=== PATIENT | female | born 1995 | race Caucasian/White ===

== ENCOUNTER 2019-03-08 03:56 | Inpatient (IN) ==
--- OUTSIDE RECORDS SUMMARY | 2019-03-08 04:03 | External Medical Summary | Continuity of Care Document ---
:1995 Author Name Farnaz Cat, Provider Address Unavailable Unavailable , Care Team Providers Name Role Phone Alen Cat, Harjeet Anna Unavailable [email or web address] Unavailable Unavailable Unavailable Unavailable Problems Female pelvic pain (625.9) (R10.2) Dysfunctional uterine bleeding (626.8) (N93.8) Dyspareunia, female (625.0) (N94.10) Oral contraceptive prescribed (V25.01) (Z30.011) Allergies and Adverse Reactions No Known Drug Allergies (Allergy) Medications 1.5-30 MG-MCG Oral Tablet; TAKE ONE TA BLET BY MOUTH EVERY DAY Stephania Lowry Start: 05-Dec-2015 Quantity: 28 Refills: 3 Microgestin FE 1.5-30 MG-MCG Oral Tablet; TAKE ONE TABLET BY MOUTH ONCE DAILY Stephania Lowry Start: 14-Apr-2016 Quantity: 28 Refills: 3 Procedures Procedures not documented Immunizations Immunizations not documented Social History - Smoking Status Never smoker Plan of Treatment Planned Observations Planned Goals not documented Results No Known Results Results not documented
[2019-03-08] MEDS ORDERED: OXYTOCIN 30 UNITS/500 ML BAG IV PRN ×3 (04:39→20:22)
[2019-03-08 05:07] LABS: Hematocrit (blood only) 32.4 % (37-47); Hemoglobin 10.9 g/dL (12.0-16.0); Mean Corpuscular Volume 78.3 fL (80-100); Mean Platelet Volume 9.6 fL (7.4-10.4); Platelet Count 210 K/uL (130-400); RDW Coefficient of Variation 14.9 % (11.5-14.5); RDW Standard Deviation 41.9 fL (36.4-46.3); Red Blood Count 4.14 M/uL (4.2-5.4); White Blood Count 9.14 K/uL (4.8-10.8)
[2019-03-08 05:16] LABS: Mean Corpuscular Hgb Conc 33.6 g/dL (32-36)
[2019-03-08] MEDS ORDERED: BUTORPHANOL TARTRATE 2 MG/ML VIAL IV PRN (07:47)
--- NOTE | 2019-03-08 07:54 | History & Physical Report ---
Date of Service March 08, 2019 Assessment & Plan (1) Spontaneous rupture of amniotic membranes: 23 yo at 39 wks, SROM, in early labor VSS Afebrile, slighly elevated BP mild CHEUNG GBS Negative FHR reassuring Plan admit, monitor, IVF, Labs, expectant management Discussed pain management, plans to have epidural All questions were answered History of Present Illness Chief Complaint: Leaking fluids Primary Care Provider: Lisha Hussein DO Patient is a 23 yo at 39 wks, has been leaking clear fluids since 230 am Contractions stared 1 hours after, getting closer and more painful No VB/ Fever/ chills/ Abd pain/ N&V/ epig or RUQ pain Mild CHEUNG since he came No change in vision Her has been uncomplicated GBS negative Allergies Allergy/AdvReac Type Severity Reaction Status Date / Time No Known Allergies Allergy Verified 03/08/19 04:17 Home Medications Home Medications Medication Instructions Recorded Confirmed Type vit-iron fum-folic ac 1 tab PO DAILY 01/20/19 03/08/19 History [ Vitamin] Patient History Medical History Ankle sprain (Acute) Cellulitis of right leg (Acute) Dizziness (Acute) Dizziness (Acute) Dizziness (Acute) Dizziness (Acute) CHEUNG (headache) (Acute) CHEUNG (headache) (Acute) Headache (Acute) Hemorrhagic ovarian cyst (Acute) Migraine (Acute) Pustule (Acute) Wrist pain, left (Acute) Broken hip 2013 Pineal gland cyst Surgical History History of root canal procedure 2017 Family History Other No significant family history Social History Preferred Language: Dutch Communication Ability: Effective Reliner Required: No Beliefs That Will Affect Care: None marital status: Current Living Situation: Spouse Other Information That Helps Us Care for You: No Feels Safe at Home: Yes Safety Concerns: Feels Safe At This Time Smoking Status: Never smoker Hx Alcohol Use: No Hx Substance Use: No [employer] History No h/o STD's, no h/o HSV/ Chlamydia/ Gonorrhea Review of Systems All systems reviewed & are unremarkable except as noted in HPI & below Physical Exam Constitutional: WD/WN, vitals as above + in distress (mild with ctxs) Gastrointestinal (Abdomen): Soft, NT, gravid, Yves 7-8 lb Musculoskeletal: Ext; NT, 2+/2+ edema, DTR 1+/1+, no clonus Genitourinary: Grossly lekaing clear fluids Cervix: 2/ 70%/ -2, engaged Results & Data Vital Signs (Past 12 Hours) Vital Signs Temp Pulse Resp BP 03/08/19 07:04 36.6 C 16 03/08/19 07:03 96 H 148/88 H 03/08/19 06:27 36.6 C 82 18 134/81 03/08/19 04:18 36.6 C 88 18 137/83 03/08/19 04:12 36.5 C 88 18 137/83 Monitoring External Monitor Categ I Tocodynamometer Ctxs q 3-4 min
[2019-03-08 08:31] LABS: Albumin Level 2.4 gm/dl (3.4-5.0); BUN Creatinine Ratio 10.7 (10-20); Creatinine Clr Calc Pharmacy 171.2 ml/min; Est GFR (African American) 149.1; Est GFR (Non-African American) 128.7; Potassium 3.8 mmol/L (3.5-5.1)
[2019-03-08 08:33] LABS: Albumin Globulin Ratio 0.6 (0.9-2); Bilirubin,Total 0.3 mg/dl (0.2-1); Globulin 4.2 gm/dl (2.5-4.0); Total Protein 6.6 gm/dl (6.4-8.2)
[2019-03-08] MEDS: LACTATED RINGER'S 1,000 ML IV PRN ×5 (09:26→17:35)
[2019-03-08] MEDS ORDERED: BUPIVACAINE 0.25% 30 ML VIAL ONE ×2 (11:56→14:48)
[2019-03-08] MEDS ORDERED: ePHEDrine sulfate 50 MG/ML AMP ONE ×2 (11:57→14:48)
[2019-03-08] MEDS ORDERED: fentaNYL citrate 100 MCG/2 ML VIAL ONE ×2 (11:57→14:49)
[2019-03-08] MEDS ORDERED: fentaNYL 2MCG/ML ROPIV 1.25MG/ML 100 ML BAG EPI ONE ×2 (11:58→14:49)
[2019-03-08 12:10] LABS: Total Protein Urine Random 66.4 mg/dl (0-11.9)
--- NOTE | 2019-03-08 12:34 | Anesthesiology Consultation ---
Date of Service March 08, 2019 Assessment & Plan Chart Review Chart Review: Acceptable Risk for Labor Epidural Consults Requested none History Height/Weight Height: 5 ft 3.5 in Weight: 107.048 kg Allergies Allergy/AdvReac Type Severity Reaction Status Date / Time No Known Allergies Allergy Verified 03/08/19 04:17 Medications Home Medications Medication Instructions Recorded Confirmed Last Taken vit-iron fum-folic ac 1 tab PO DAILY 01/20/19 03/08/19 03/07/19 09:00 [ Vitamin] Active Medications Generic Name Dose Route Start Last Admin Trade Name Freq PRN Reason Stop Dose Admin Butorphanol Tartrate 1 mg 03/08/19 07:47 03/08/19 09:23 Stadol IV 04/07/19 07:46 1 mg Q3HWA PRN Administration Pain Lactated Ringer's 1,000 mls @ 125 mls/hr 03/08/19 04:39 03/08/19 12:12 Lr IV 03/10/19 04:38 125 mls/hr .Q8H PRN Infusion L&D Protocol Protocol Past Medical History Medical History Ankle sprain (Acute) Cellulitis of right leg (Acute) Dizziness (Acute) Dizziness (Acute) Dizziness (Acute) Dizziness (Acute) CHEUNG (headache) (Acute) CHEUNG (headache) (Acute) Headache (Acute) Hemorrhagic ovarian cyst (Acute) Migraine (Acute) Pustule (Acute) Wrist pain, left (Acute) Broken hip 2014 Pineal gland cyst Past Family History Family History Other No significant family history Past Surgical History Surgical History History of root canal procedure 2017 Social History Smoking Status: Never smoker Hx Alcohol Use: No Hx Substance Use: No substance use type: does not use Physical Exam Vital Signs Last Vital Signs Temp 36.5 C 03/08/19 10:55 Pulse 105 H 03/08/19 12:31 Resp 20 03/08/19 11:21 BP 148/85 H 03/08/19 12:23 Pulse Ox 99 03/08/19 12:31
[2019-03-08] MEDS ORDERED: NALOXONE HCL 1 MG in SODIUM CHLORIDE 0.9% 1000ML 1,000 ML IV PRN (12:35)
[2019-03-08] MEDS ORDERED: fentaNYL 2MCG/ML ROPIV 1.25MG/ML 100 ML BAG EPI PRN (12:35)
[2019-03-08] MEDS ORDERED: NALOXONE HCL 0.4 MG/1 ML VIAL/CARP IV PRN (12:35)
[2019-03-08] MEDS ORDERED: ePHEDrine sulfate 50 MG/ML AMP IV PRN (12:35)
[2019-03-08] MEDS ORDERED: NALBUPHINE HCL INJ 10 MG/ML AMP IV PRN (12:35)
[2019-03-08] MEDS ORDERED: DiphenhydrAMINE HCL 50 MG/ML VIAL IV PRN (12:35)
[2019-03-08] MEDS ORDERED: LIDOCAINE HCL 2% MPF (LOCAL) 5 ML VIAL INFIL ONE (14:33)
--- NOTE | 2019-03-08 15:21 | Obstetrical Progress Note ---
Date of Service March 08, 2019 Subjective Patient is reevaluated She received epidural but has pain on right side VSS Afebrile FHR categ I VE; 5/ 70%/ -2 Dr. Ahuja is here to bolus epidural Continue to monitor Start low dose Pitocin after pain relief Results & Data Vital Signs (Past 12 Hours) Vital Signs Temp Pulse Resp BP Pulse Ox Pulse Ox 03/08/19 15:16 111 H 112/56 L 93 03/08/19 15:13 109 H 92/54 L 03/08/19 15:11 132 H 111/53 L 95 03/08/19 15:07 115 H 126/65 03/08/19 15:06 113 H 97 03/08/19 15:04 125 H 131/65 03/08/19 15:01 116 H 128/64 96 03/08/19 14:56 124 H 99 03/08/19 14:51 113 H 141/94 H 98 03/08/19 14:46 110 H 99 03/08/19 14:42 113 H 150/78 H 03/08/19 14:41 108 H 98 03/08/19 14:36 109 H 99 03/08/19 14:31 119 H 146/74 H 96 03/08/19 14:26 109 H 98 03/08/19 14:23 112 H 148/99 H 03/08/19 14:21 113 H 100 03/08/19 14:16 113 H 96 03/08/19 14:12 109 H 142/85 H 03/08/19 14:11 113 H 97 03/08/19 14:06 115 H 100 03/08/19 14:01 114 H 137/80 97 03/08/19 13:56 102 H 100 03/08/19 13:51 104 H 131/73 98 03/08/19 13:46 110 H 98 03/08/19 13:41 105 H 136/74 97 03/08/19 13:36 98 H 97 03/08/19 13:32 101 H 148/74 H 03/08/19 13:31 102 H 99 03/08/19 13:26 104 H 96 03/08/19 13:25 110 H 88 L 03/08/19 13:23 36.8 C 18 03/08/19 13:21 100 H 95 03/08/19 13:20 107 H 135/83 88 L 03/08/19 13:17 117 H 132/78 03/08/19 13:16 104 H 98 03/08/19 13:15 102 H 135/99 03/08/19 13:11 119 H 135/77 96 03/08/19 13:09 112 H 92 03/08/19 13:08 100 H 129/71 03/08/19 13:06 117 H 96 03/08/19 13:05 115 H 130/71 03/08/19 13:02 111 H 133/73 03/08/19 13:01 106 H 99 03/08/19 12:59 102 H 137/72 03/08/19 12:56 101 H 97/50 L 93 03/08/19 12:53 106 H 104/51 L 03/08/19 12:51 112 H 96 03/08/19 12:50 113 H 116/54 L 03/08/19 12:47 106 H 122/61 03/08/19 12:46 109 H 97 03/08/19 12:45 98 03/08/19 12:44 109 H 135/73 03/08/19 12:41 97 H 99 03/08/19 12:38 101 H 133/73 93 03/08/19 12:36 107 H 100 03/08/19 12:31 105 H 99 03/08/19 12:29 101 H 92 03/08/19 12:26 103 H 99 03/08/19 12:23 110 H 148/85 H 03/08/19 12:22 105 H 93 03/08/19 12:21 94 H 98 03/08/19 11:21 104 H 20 134/76 03/08/19 10:55 36.5 C 18 03/08/19 09:00 36.4 C L 18 03/08/19 07:04 36.6 C 16 03/08/19 07:03 96 H 148/88 H 03/08/19 06:27 36.6 C 82 18 134/81 03/08/19 04:18 36.6 C 88 18 137/83 03/08/19 04:12 36.5 C 88 18 137/83
--- NOTE | 2019-03-08 17:51 | Obstetrical Progress Note ---
Date of Service March 08, 2019 Subjective Patient is reevaluated Comfortable now VE: 8/ 90%/0 FHR categ I [place]: ctxs q 2-4 min, pitocin was started at 2 miu/min Continue to monitor Anticipate Results & Data Vital Signs (Past 12 Hours) Vital Signs Temp Pulse Resp BP Pulse Ox Pulse Ox 03/08/19 17:46 111 H 96 03/08/19 17:41 112 H 99 03/08/19 17:40 112 H 137/75 03/08/19 17:36 115 H 99 03/08/19 17:31 113 H 97 03/08/19 17:29 114 H 132/71 03/08/19 17:26 119 H 96 03/08/19 17:21 116 H 96 03/08/19 17:19 114 H 124/68 03/08/19 17:16 112 H 95 03/08/19 17:11 109 H 97 03/08/19 17:09 106 H 126/74 03/08/19 17:06 114 H 97 03/08/19 17:01 110 H 98 03/08/19 17:00 111 H 129/69 03/08/19 16:56 105 H 98 03/08/19 16:51 111 H 95 03/08/19 16:49 116 H 133/69 03/08/19 16:46 105 H 95 03/08/19 16:41 114 H 96 03/08/19 16:39 113 H 121/60 03/08/19 16:36 104 H 97 03/08/19 16:35 120 H 88 L 03/08/19 16:31 106 H 95 03/08/19 16:30 109 H 124/58 L 03/08/19 16:26 107 H 95 03/08/19 16:21 107 H 94 03/08/19 16:19 104 H 104/59 L 03/08/19 16:16 101 H 97 03/08/19 16:11 101 H 95 03/08/19 16:09 105 H 100/57 L 03/08/19 16:06 99 H 94 03/08/19 16:01 105 H 97 03/08/19 16:00 99 H 99/53 L 03/08/19 15:56 106 H 95 03/08/19 15:51 100 H 94 03/08/19 15:49 101 H 103/56 L 03/08/19 15:46 99 H 95 03/08/19 15:41 103 H 95 03/08/19 15:39 96 H 113/55 L 03/08/19 15:36 103 H 94 03/08/19 15:34 101 H 90 03/08/19 15:31 99 H 94 03/08/19 15:28 96 H 110/61 03/08/19 15:26 92 H 95 03/08/19 15:25 104 H 108/60 91 03/08/19 15:22 102 H 108/62 03/08/19 15:21 123 H 94 03/08/19 15:20 104 H 91 03/08/19 15:19 117 H 87/50 L 03/08/19 15:16 111 H 112/56 L 93 03/08/19 15:13 109 H 92/54 L 03/08/19 15:11 132 H 111/53 L 95 03/08/19 15:07 115 H 126/65 03/08/19 15:06 113 H 97 03/08/19 15:04 125 H 131/65 03/08/19 15:01 116 H 128/64 96 03/08/19 15:00 36.5 C 18 03/08/19 14:56 124 H 99 03/08/19 14:51 113 H 141/94 H 98 03/08/19 14:46 110 H 99 03/08/19 14:42 113 H 150/78 H 03/08/19 14:41 108 H 98 03/08/19 14:36 109 H 99 03/08/19 14:31 119 H 146/74 H 96 03/08/19 14:26 109 H 98 03/08/19 14:23 112 H 148/99 H 03/08/19 14:21 113 H 100 03/08/19 14:16 113 H 96 03/08/19 14:12 109 H 142/85 H 03/08/19 14:11 113 H 97 03/08/19 14:06 115 H 100 03/08/19 14:01 114 H 137/80 97 03/08/19 13:56 102 H 100 03/08/19 13:51 104 H 131/73 98 03/08/19 13:46 110 H 98 03/08/19 13:41 105 H 136/74 97 03/08/19 13:36 98 H 97 03/08/19 13:32 101 H 148/74 H 03/08/19 13:31 102 H 99 03/08/19 13:26 104 H 96 03/08/19 13:25 110 H 88 L 03/08/19 13:23 36.8 C 18 03/08/19 13:21 100 H 95 03/08/19 13:20 107 H 135/83 88 L 03/08/19 13:17 117 H 132/78 03/08/19 13:16 104 H 98 03/08/19 13:15 102 H 135/99 03/08/19 13:11 119 H 135/77 96 03/08/19 13:09 112 H 92 03/08/19 13:08 100 H 129/71 03/08/19 13:06 117 H 96 03/08/19 13:05 115 H 130/71 03/08/19 13:02 111 H 133/73 03/08/19 13:01 106 H 99 03/08/19 12:59 102 H 137/72 03/08/19 12:56 101 H 97/50 L 93 03/08/19 12:53 106 H 104/51 L 03/08/19 12:51 112 H 96 03/08/19 12:50 113 H 116/54 L 03/08/19 12:47 106 H 122/61 03/08/19 12:46 109 H 97 03/08/19 12:45 98 03/08/19 12:44 109 H 135/73 03/08/19 12:41 97 H 99 03/08/19 12:38 101 H 133/73 93 03/08/19 12:36 107 H 100 03/08/19 12:31 105 H 99 03/08/19 12:29 101 H 92 03/08/19 12:26 103 H 99 03/08/19 12:23 110 H 148/85 H 03/08/19 12:22 105 H 93 03/08/19 12:21 94 H 98 03/08/19 11:21 104 H 20 134/76 03/08/19 10:55 36.5 C 18 03/08/19 09:00 36.4 C L 18 03/08/19 07:04 36.6 C 16 03/08/19 07:03 96 H 148/88 H 03/08/19 06:27 36.6 C 82 18 134/81
--- NOTE | 2019-03-08 18:53 | Obstetrical Progress Note ---
Date of Service March 08, 2019 Subjective Patient feels rectal pressure VE; 9 ( thin lip on right side) 100%+1 with ctx FHR categ I [place]: ctxs q 2-3 min Continue to monitor anticipate Results & Data Vital Signs (Past 12 Hours) Vital Signs Temp Pulse Resp BP Pulse Ox Pulse Ox 03/08/19 18:51 107 H 99 03/08/19 18:49 110 H 126/75 03/08/19 18:46 117 H 98 03/08/19 18:41 114 H 97 03/08/19 18:39 111 H 118/70 03/08/19 18:36 127 H 97 03/08/19 18:31 118 H 97 03/08/19 18:29 111 H 119/77 03/08/19 18:26 107 H 98 03/08/19 18:21 111 H 96 03/08/19 18:19 110 H 131/73 03/08/19 18:16 114 H 96 03/08/19 18:11 112 H 97 03/08/19 18:09 110 H 122/77 03/08/19 18:06 107 H 96 03/08/19 18:04 36.8 C 18 03/08/19 18:01 110 H 96 03/08/19 17:59 110 H 125/80 03/08/19 17:56 106 H 96 03/08/19 17:51 112 H 134/81 97 03/08/19 17:46 111 H 96 03/08/19 17:41 112 H 99 03/08/19 17:40 112 H 137/75 03/08/19 17:36 115 H 99 03/08/19 17:31 113 H 97 03/08/19 17:29 114 H 132/71 03/08/19 17:26 119 H 96 03/08/19 17:21 116 H 96 03/08/19 17:19 114 H 124/68 03/08/19 17:16 112 H 95 03/08/19 17:11 109 H 97 03/08/19 17:09 106 H 126/74 03/08/19 17:06 114 H 97 03/08/19 17:01 110 H 98 03/08/19 17:00 111 H 129/69 03/08/19 16:56 105 H 98 03/08/19 16:51 111 H 95 03/08/19 16:49 116 H 133/69 03/08/19 16:46 105 H 95 03/08/19 16:41 114 H 96 03/08/19 16:39 113 H 121/60 03/08/19 16:36 104 H 97 03/08/19 16:35 120 H 88 L 03/08/19 16:31 106 H 95 03/08/19 16:30 109 H 124/58 L 03/08/19 16:26 107 H 95 03/08/19 16:21 107 H 94 03/08/19 16:19 104 H 104/59 L 03/08/19 16:16 101 H 97 03/08/19 16:11 101 H 95 03/08/19 16:09 105 H 100/57 L 03/08/19 16:06 99 H 94 03/08/19 16:01 105 H 97 03/08/19 16:00 99 H 99/53 L 03/08/19 15:56 106 H 95 03/08/19 15:51 100 H 94 03/08/19 15:49 101 H 103/56 L 03/08/19 15:46 99 H 95 03/08/19 15:41 103 H 95 03/08/19 15:39 96 H 113/55 L 03/08/19 15:36 103 H 94 03/08/19 15:34 101 H 90 03/08/19 15:31 99 H 94 03/08/19 15:28 96 H 110/61 03/08/19 15:26 92 H 95 03/08/19 15:25 104 H 108/60 91 03/08/19 15:22 102 H 108/62 03/08/19 15:21 123 H 94 03/08/19 15:20 104 H 91 03/08/19 15:19 117 H 87/50 L 03/08/19 15:16 111 H 112/56 L 93 03/08/19 15:13 109 H 92/54 L 03/08/19 15:11 132 H 111/53 L 95 03/08/19 15:07 115 H 126/65 03/08/19 15:06 113 H 97 03/08/19 15:04 125 H 131/65 03/08/19 15:01 116 H 128/64 96 03/08/19 15:00 36.5 C 18 03/08/19 14:56 124 H 99 03/08/19 14:51 113 H 141/94 H 98 03/08/19 14:46 110 H 99 03/08/19 14:42 113 H 150/78 H 03/08/19 14:41 108 H 98 03/08/19 14:36 109 H 99 03/08/19 14:31 119 H 146/74 H 96 03/08/19 14:26 109 H 98 03/08/19 14:23 112 H 148/99 H 03/08/19 14:21 113 H 100 03/08/19 14:16 113 H 96 03/08/19 14:12 109 H 142/85 H 03/08/19 14:11 113 H 97 03/08/19 14:06 115 H 100 03/08/19 14:01 114 H 137/80 97 03/08/19 13:56 102 H 100 03/08/19 13:51 104 H 131/73 98 03/08/19 13:46 110 H 98 03/08/19 13:41 105 H 136/74 97 03/08/19 13:36 98 H 97 03/08/19 13:32 101 H 148/74 H 03/08/19 13:31 102 H 99 03/08/19 13:26 104 H 96 03/08/19 13:25 110 H 88 L 03/08/19 13:23 36.8 C 18 03/08/19 13:21 100 H 95 03/08/19 13:20 107 H 135/83 88 L 03/08/19 13:17 117 H 132/78 03/08/19 13:16 104 H 98 03/08/19 13:15 102 H 135/99 03/08/19 13:11 119 H 135/77 96 03/08/19 13:09 112 H 92 03/08/19 13:08 100 H 129/71 03/08/19 13:06 117 H 96 03/08/19 13:05 115 H 130/71 03/08/19 13:02 111 H 133/73 03/08/19 13:01 106 H 99 03/08/19 12:59 102 H 137/72 03/08/19 12:56 101 H 97/50 L 93 03/08/19 12:53 106 H 104/51 L 03/08/19 12:51 112 H 96 03/08/19 12:50 113 H 116/54 L 03/08/19 12:47 106 H 122/61 03/08/19 12:46 109 H 97 03/08/19 12:45 98 03/08/19 12:44 109 H 135/73 03/08/19 12:41 97 H 99 03/08/19 12:38 101 H 133/73 93 03/08/19 12:36 107 H 100 03/08/19 12:31 105 H 99 03/08/19 12:29 101 H 92 03/08/19 12:26 103 H 99 03/08/19 12:23 110 H 148/85 H 03/08/19 12:22 105 H 93 03/08/19 12:21 94 H 98 03/08/19 11:21 104 H 20 134/76 03/08/19 10:55 36.5 C 18 03/08/19 09:00 36.4 C L 18 03/08/19 07:04 36.6 C 16 03/08/19 07:03 96 H 148/88 H
[2019-03-08] MEDS ORDERED: CEFAZOLIN 3000MG/72.5 ML BAG IV STA (19:46)
[2019-03-08] MEDS ORDERED: CEFAZOLIN 2000MG 2,000 MG/15 ML SYR IV ONE (20:00)
[2019-03-08] MEDS ORDERED: ONDANSETRON INJ 2 MG/ML 2 ML VIAL ONE (20:04)
[2019-03-08] MEDS ORDERED: ONDANSETRON INJ 2 MG/ML 2 ML VIAL IV PRN (20:07)
[2019-03-08] MEDS ORDERED: BENZOCAINE 20% AER SPR 82.5 GM CAN EXT PRN (20:22)
[2019-03-08] MEDS ORDERED: SUPERCREAM 0.870% 15 GM JAR EXT PRN (20:22)
[2019-03-08] MEDS ORDERED: HYDROCORTISONE ACETATE 25 MG SUPP PR PRN (20:22)
[2019-03-08] MEDS ORDERED: ACETAMINOPHEN 325 MG TAB PO PRN (20:22)
[2019-03-08] MEDS ORDERED: BISACODYL 10 MG SUPP PR PRN (20:22)
[2019-03-08] MEDS ORDERED: METHYLERGONOVINE MALEATE 0.2 MG/ML AMP IM ONE (20:22)
[2019-03-08] MEDS ORDERED: LACTATED RINGER'S 1,000 ML IV SCH (20:30)
[2019-03-08] MEDS: DOCUSATE SODIUM 100 MG CAP PO SCH (21:31)
[2019-03-08] MEDS: IBUPROFEN 600 MG TAB PO PRN (21:38)
--- NOTE | 2019-03-08 22:12 | Anesthesia Procedure Note ---
Date of Service March 08, 2019 Anesthesia Post Epidural Note Vital Signs Vital Signs: Temp Pulse Resp BP Pulse Ox Pulse Ox 03/08/19 21:39 111 H 133/68 03/08/19 21:29 116 H 132/60 03/08/19 21:19 111 H 131/60 03/08/19 21:09 110 H 120/59 L 03/08/19 20:59 118 H 121/58 L 03/08/19 20:49 120 H 114/64 03/08/19 20:39 116 H 119/65 03/08/19 20:29 133 H 116/66 03/08/19 20:26 127 H 95 03/08/19 20:21 129 H 98 03/08/19 20:19 126 H 118/61 03/08/19 20:16 115 H 99 03/08/19 20:11 121 H 98 03/08/19 20:09 122 H 115/58 L 03/08/19 20:06 128 H 88 L 03/08/19 20:02 143 H 90 03/08/19 20:01 151 H 92 03/08/19 19:59 131 H 110/53 L 03/08/19 19:56 135 H 97 03/08/19 19:51 149 H 95 03/08/19 19:49 150 H 116/57 L 03/08/19 19:48 146 H 88 L 03/08/19 19:46 149 H 98 03/08/19 19:41 172 H 89 L 03/08/19 19:40 160 H 133/72 03/08/19 19:36 132 H 97 03/08/19 19:31 143 H 95 03/08/19 19:30 139 H 166/67 H 03/08/19 19:26 133 H 96 03/08/19 19:21 111 H 97 03/08/19 19:20 109 H 129/70 03/08/19 19:16 115 H 95 03/08/19 19:14 120 H 89 L 03/08/19 19:11 105 H 98 03/08/19 19:09 114 H 140/68 03/08/19 19:06 112 H 99 03/08/19 19:01 101 H 98 03/08/19 19:00 115 H 131/72 03/08/19 18:57 36.5 C 18 03/08/19 18:56 105 H 99 03/08/19 18:51 107 H 99 06 18:49 110 H 126/75 03/08/19 18:46 117 H 98 03/08/19 18:41 114 H 97 03/08/19 18:39 111 H 118/70 03/08/19 18:36 127 H 97 03/08/19 18:31 118 H 97 03/08/19 18:29 111 H 119/77 03/08/19 18:26 107 H 98 03/08/19 18:21 111 H 96 03/08/19 18:19 110 H 131/73 03/08/19 18:16 114 H 96 03/08/19 18:11 112 H 97 03/08/19 18:09 110 H 122/77 03/08/19 18:06 107 H 96 03/08/19 18:04 36.8 C 18 03/08/19 18:01 110 H 96 03/08/19 17:59 110 H 125/80 03/08/19 17:56 106 H 96 03/08/19 17:51 112 H 134/81 97 03/08/19 17:46 111 H 96 03/08/19 17:41 112 H 99 03/08/19 17:40 112 H 137/75 03/08/19 17:36 115 H 99 03/08/19 17:31 113 H 97 03/08/19 17:29 114 H 132/71 03/08/19 17:26 119 H 96 03/08/19 17:21 116 H 96 03/08/19 17:19 114 H 124/68 03/08/19 17:16 112 H 95 03/08/19 17:11 109 H 97 03/08/19 17:09 106 H 126/74 03/08/19 17:06 114 H 97 03/08/19 17:01 110 H 98 03/08/19 17:00 111 H 129/69 03/08/19 16:56 105 H 98 03/08/19 16:51 111 H 95 03/08/19 16:49 116 H 133/69 03/08/19 16:46 105 H 95 03/08/19 16:41 114 H 96 03/08/19 16:39 113 H 121/60 03/08/19 16:36 104 H 97 03/08/19 16:35 120 H 88 L 03/08/19 16:31 106 H 95 03/08/19 16:30 109 H 124/58 L 03/08/19 16:26 107 H 95 03/08/19 16:21 107 H 94 03/08/19 16:19 104 H 104/59 L 03/08/19 16:16 101 H 97 03/08/19 16:11 101 H 95 03/08/19 16:09 105 H 100/57 L 03/08/19 16:06 99 H 94 03/08/19 16:01 105 H 97 03/08/19 16:00 99 H 99/53 L 03/08/19 15:56 106 H 95 03/08/19 15:51 100 H 94 03/08/19 15:49 101 H 103/56 L 03/08/19 15:46 99 H 95 03/08/19 15:41 103 H 95 03/08/19 15:39 96 H 113/55 L 03/08/19 15:36 103 H 94 03/08/19 15:34 101 H 90 03/08/19 15:31 99 H 94 03/08/19 15:28 96 H 110/61 03/08/19 15:26 92 H 95 03/08/19 15:25 104 H 108/60 91 03/08/19 15:22 102 H 108/62 03/08/19 15:21 123 H 94 03/08/19 15:20 104 H 91 03/08/19 15:19 117 H 87/50 L 03/08/19 15:16 111 H 112/56 L 93 03/08/19 15:13 109 H 92/54 L 03/08/19 15:11 132 H 111/53 L 95 03/08/19 15:07 115 H 126/65 03/08/19 15:06 113 H 97 03/08/19 15:04 125 H 131/65 03/08/19 15:01 116 H 128/64 96 03/08/19 15:00 36.5 C 18 03/08/19 14:56 124 H 99 03/08/19 14:51 113 H 141/94 H 98 03/08/19 14:46 110 H 99 03/08/19 14:42 113 H 150/78 H 03/08/19 14:41 108 H 98 03/08/19 14:36 109 H 99 03/08/19 14:31 119 H 146/74 H 96 03/08/19 14:26 109 H 98 03/08/19 14:23 112 H 148/99 H 03/08/19 14:21 113 H 100 03/08/19 14:16 113 H 96 03/08/19 14:12 109 H 142/85 H 03/08/19 14:11 113 H 97 03/08/19 14:06 115 H 100 03/08/19 14:01 114 H 137/80 97 03/08/19 13:56 102 H 100 03/08/19 13:51 104 H 131/73 98 03/08/19 13:46 110 H 98 03/08/19 13:41 105 H 136/74 97 03/08/19 13:36 98 H 97 03/08/19 13:32 101 H 148/74 H 03/08/19 13:31 102 H 99 03/08/19 13:26 104 H 96 03/08/19 13:25 110 H 88 L 03/08/19 13:23 36.8 C 18 03/08/19 13:21 100 H 95 03/08/19 13:20 107 H 135/83 88 L 03/08/19 13:17 117 H 132/78 03/08/19 13:16 104 H 98 03/08/19 13:15 102 H 135/99 03/08/19 13:11 119 H 135/77 96 03/08/19 13:09 112 H 92 03/08/19 13:08 100 H 129/71 03/08/19 13:06 117 H 96 03/08/19 13:05 115 H 130/71 03/08/19 13:02 111 H 133/73 03/08/19 13:01 106 H 99 03/08/19 12:59 102 H 137/72 03/08/19 12:56 101 H 97/50 L 93 03/08/19 12:53 106 H 104/51 L 03/08/19 12:51 112 H 96 03/08/19 12:50 113 H 116/54 L 03/08/19 12:47 106 H 122/61 03/08/19 12:46 109 H 97 03/08/19 12:45 98 03/08/19 12:44 109 H 135/73 03/08/19 12:41 97 H 99 03/08/19 12:38 101 H 133/73 93 03/08/19 12:36 107 H 100 03/08/19 12:31 105 H 99 03/08/19 12:29 101 H 92 03/08/19 12:26 103 H 99 03/08/19 12:23 110 H 148/85 H 03/08/19 12:22 105 H 93 03/08/19 12:21 94 H 98 03/08/19 11:21 104 H 20 134/76 03/08/19 10:55 36.5 C 18 03/08/19 09:00 36.4 C L 18 03/08/19 07:04 36.6 C 16 03/08/19 07:03 96 H 148/88 H 03/08/19 06:27 36.6 C 82 18 134/81 03/08/19 04:18 36.6 C 88 18 137/83 03/08/19 04:12 36.5 C 88 18 137/83 Pain Intensity Abdomen: Pain Intensity: 5 Notes Mental Status: alert / awake / arousable Nausea / Vomiting: adequately controlled Pain: adequately controlled Airway Patency, RR, SpO2: stable & adequate BP & HR: stable & adequate Hydration State: stable & adequate Neuraxial Anesthesia: was administered and sensory block is resolving Anesthetic Complications: no major complications apparent and Pt Satisfied with anesthetic care Epidural: Removed without complications and With tip intact
[2019-03-08] MEDS: OXYCODONE/ACETAMINOPHEN 5mg/325mg TAB PO PRN (22:29)
--- NOTE | 2019-03-09 02:41 | Delivery Summary ---
DATE OF OPERATION: 03/08/2019 DATE OF DELIVERY: 03/08/2019 TIME: 19:41 p.m. TIME OF DELIVERY OF PLACENTA: 19:51 p.m. DETAILS OF DELIVERY: The patient was found to be fully dilated and desired to push. She pushed for about 15 minutes and delivered the head without difficulty. Shoulders were delivered with minimal traction. Baby was handed to the mother where mouth and nose were suctioned. Cord was clamped x2 and cut at 1 minute delay, it was 3-vessel cord. The cord blood was obtained and then perineum and vagina were checked for lacerations. There was a third degree perineal laceration and then extending into the vagina bilaterally on the right and left sulcus and then it was extension into the left labia. Rectal exam was done confirmed to be partial 3rd degree laceration. The patient still had some sphincter tone and the sphincter muscles were held with Allis clamps, brought to the midline. Gloves were changed and then the sphincter muscles were reapproximated with 2-0 Vicryl with [id number] stitches x2 and then rectal exam was repeated. Excellent sphincter tone was noted and no sutures were felt and the perineal body muscles were reapproximated reinforcing the sphincter repair. Then the both sulcus lacerations in right and left vagina were repaired with 2-0 Vicryl on a running locked fashion and came to the hymenal level and then the left labial extension was repaired with 2-0 Vicryl and then the rest of the perineal body muscles reapproximated with 2-0 Vicryl and the skin in a subcuticular fashion and the labial skin was reapproximated with 3-0 Vicryl on SH needle. Excellent hemostasis was achieved. The placenta was delivered spontaneously. It was complete and intact. Uterus was explored, found to be empty. Fundus was firm. Lower segment was cleared of all clots and debris. EBL was 300 mL. Mom and baby tolerated the procedure well. Sponge, lap, needle count was correct x2. Baby was a viable female . Apgars 8/9. No complications happened and I was present during whole procedure. I attest to the content of the Intraoperative Record and any orders documented therein. Any exceptions are noted below. MTDD
[2019-03-09] MEDS: IBUPROFEN 600 MG TAB PO PRN ×3 (03:18→18:38)
[2019-03-09] MEDS: OXYCODONE/ACETAMINOPHEN 5mg/325mg TAB PO PRN (03:19)
[2019-03-09 07:22] LABS: Hematocrit (blood only) 23.6 % (37-47); Hemoglobin 7.9 g/dL (12.0-16.0); Mean Corpuscular Hgb Conc 33.5 g/dL (32-36); Mean Corpuscular Volume 79.2 fL (80-100); Mean Platelet Volume 9.3 fL (7.4-10.4); Platelet Count 182 K/uL (130-400); RDW Coefficient of Variation 15.4 % (11.5-14.5); RDW Standard Deviation 44.6 fL (36.4-46.3); Red Blood Count 2.98 M/uL (4.2-5.4); White Blood Count 12.58 K/uL (4.8-10.8)
[2019-03-09] MEDS: DOCUSATE SODIUM 100 MG CAP PO SCH ×2 (07:23→20:07)
[2019-03-09] MEDS ORDERED: DIPHTHERIA/TETANUS/PERTUSSIS 0.5 ML SYR/VIAL IM ONE (09:00)
[2019-03-09] MEDS: POLYETHYLENE (MIRALAX) 17 GM PACK PO SCH (09:19)
[2019-03-09] MEDS: PRENATAL VITAMIN 1 TAB PO SCH (09:19)
[2019-03-09] MEDS: FERROUS SULFATE 325 MG TAB PO SCH (09:19)
--- NOTE | 2019-03-09 09:42 | Obstetrical Progress Note ---
Date of Service March 09, 2019 Physical Exam Physical Exam: abdomen soft and non tender vaginal bleeding scant to moderate no calf tenderness voiding with high residuals > 500 ml narayan catheter inserted Results & Data Vital Signs (Past 12 Hours) Vital Signs Temp Pulse Pulse Resp BP BP Pulse Ox 03/09/19 07:25 36.7 C 96 H 20 112/65 98 03/09/19 03:20 36.9 C 100 H 18 104/59 L 03/09/19 03:14 100 H 104/59 L 03/08/19 23:48 118 H 136/63 03/08/19 23:45 36.6 C 118 H 20 136/63
[2019-03-09] MEDS ORDERED: BISACODYL 5 MG TABEC PO SCH (20:00)
[2019-03-10] MEDS: IBUPROFEN 600 MG TAB PO PRN ×4 (00:02→18:02)
[2019-03-10 06:32] LABS: Hematocrit (blood only) 23.1 % (37-47); Hemoglobin 7.9 g/dL (12.0-16.0)
[2019-03-10] MEDS: FERROUS SULFATE 325 MG TAB PO SCH (08:41)
[2019-03-10] MEDS: DOCUSATE SODIUM 100 MG CAP PO SCH (08:41)
[2019-03-10] MEDS: PRENATAL VITAMIN 1 TAB PO SCH (08:41)
[2019-03-10] MEDS: POLYETHYLENE (MIRALAX) 17 GM PACK PO SCH (08:42)
--- NOTE | 2019-03-10 10:35 | Obstetrical Progress Note ---
Date of Service March 10, 2019 Physical Exam Physical Exam: patient doing well baby under bili lights will plan to go to [facility] abdomen soft non-tender fundus firm no edema neg Kelin's will plan for discharge to [facility] Results & Data Vital Signs (Past 12 Hours) Vital Signs Temp Pulse Resp BP Pulse Ox 03/10/19 07:50 36.7 C 87 18 111/74 96 03/10/19 00:25 36.8 C 95 H 16 108/65 97
== END 2019-03-10 18:18 | disposition home or self-care (01) | DRG 768 ==
LOC: OPB 03:56 → 4S1 03:58 → 4N 03-09 07:32

== ENCOUNTER 2021-05-23 08:04 | Inpatient (IN) ==
[2021-05-23] MEDS ORDERED: LACTATED RINGER'S 1,000 ML IV PRN (08:23)
[2021-05-23] MEDS ORDERED: OXYTOCIN 30 UNITS/500 ML BAG IV PRN (08:23)
[2021-05-23 09:02] LABS: Hematocrit (blood only) 31.6 % (37-47); Hemoglobin 10.2 g/dL (12.0-16.0); Mean Corpuscular Hemoglobin 24.7 pg (25-34); Mean Corpuscular Hgb Conc 32.3 g/dL (32-36); Mean Corpuscular Volume 76.5 fL (80-100); Mean Platelet Volume 9.7 fL (7.4-10.4); Platelet Count 221 K/uL (130-400); RDW Coefficient of Variation 15.2 % (11.5-14.5); RDW Standard Deviation 42.6 fL (36.4-46.3); Red Blood Count 4.13 M/uL (4.2-5.4); White Blood Count 9.97 K/uL (4.8-10.8)
--- NOTE | 2021-05-23 10:50 | History & Physical Report ---
Date of Service May 23, 2021 Assessment & Plan (1) Obesity: Plan: induction of labor cervical ripening with Cervidil Admission and Anticipated Discharge Date Admission Date: May 23, 2021 History of Present Illness Chief Complaint: induction of labor for Class III obesity Primary Care Provider: HOMERO PCP 26 F P1001 at 39 weeks admitted for IOL for Class II obesity. GBS is negative. Covid is negaive. No contractions, blleding or any leakage of fluid. FHT CAT 1. wILL START WITH cERVIDIL FOR CERVICAL RIPENING. Allergies Allergy/AdvReac Type Severity Reaction Status Date / Time No Known Allergies Allergy Verified 05/08/21 23:03 Home Medications Medication Instructions Recorded Confirmed Type prenat.vits,jasvir,[id number] 1 tab PO DAILY 01/19/21 05/23/21 History ferrous sulfate 325 mg (65 mg 325 mg PO DAILY 05/08/21 05/23/21 History iron) tablet (Iron (ferrous sulfate)) magnesium 250 mg tablet 250 mg PO DAILY 05/23/21 05/23/21 History vitamin B complex 1 cap PO DAILY 05/23/21 05/23/21 History Patient History Medical History Broken hip Right. Occurred during basic training for the [employer] in [id number]. Nondisplaced fracture, treated supportively. Hemorrhagic ovarian cyst No known health problems Obesity Pineal gland cyst Surgical History History of root canal procedure 2016 No history of previous surgery Family History Grandfather (Maternal) Family history of diabetes mellitus Grandmother (Paternal) Ovarian cancer Other No significant family history Social History Smoking Status: Never smoker Second Hand Exposure: No; Do You Dip or Chew Tobacco: No; Tobacco Cessation Education Requested by Patient: No Hx Alcohol Use: No Hx Substance Use: No Preferred Language: Slovak Communication Ability: Effective Meat Blender Required: No Beliefs That Will Affect Care: None marital status: marital status details: Roddy Coronado Current Living Situation: Family Current Living Situation Comment: Lives with and 2 yo daughter current occupational status: unemployed current occupation: Homemaker Other Information That Helps Us Care for You: No Feels Safe at Home: Yes Safety Concerns: Feels Safe At This Time Assistive Devices: None OB History 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 History WNL Review of Systems All systems reviewed & are unremarkable except as noted in HPI & below Physical Exam Constitutional: WD/WN, vitals as above + obese and comfortable Respiratory: normal respiratory effort, lungs clear to auscultation Cardiovascular: RRR, no murmur, no edema Skin: no rashes, warm and dry Neurologic: patellar DTR's 2+ bilat, sensation intact Psychiatric: A+Ox3, euthymic affect Genitourinary: no vaginal lesions, no adnexal mass OB Exam Abdomen: + fundal height, + vertex and + estimated weight (8 lbs) Manual OB Exam: + cervical dilation fingertip, + cervical effacement 50% and + station high OB Exam Monitor Tracing: + external FHT monitor used, + external uterine monitor used, + category I and + normal FHT variability Results & Data ([facility]) Vital Signs (Past 12 Hours) Vital Signs Temp Pulse Resp BP 05/23/21 09:53 81 20 125/76 05/23/21 08:17 36.7 C 20 05/23/21 08:05 36.7 C 99 H 20 125/74 Laboratory Results Laboratory Results - last 48 hr 05/23/21 05/23/21 05/23/21 08:25 08:25 08:40 WBC 9.97 RBC 4.13 L Hgb 10.2 L Hct 31.6 L MCV 76.5 L MCH 24.7 L MCHC 32.3 RDW Std Deviation 42.6 RDW Coeff of Greg 15.2 H Plt Count 221 MPV 9.7 COVID[facility]19 [facility]-2, RNA, NAAT NEGATIVE
[2021-05-23] MEDS ORDERED: DINOPROSTONE 10 MG INSERT PV ONE (10:55)
--- NOTE | 2021-05-23 11:18 | Labor Progress Brief Note ---
Date of Service May 23, 2021 Assessment & Plan Admission and Anticipated Discharge Date Admission Date: May 23, 2021 Physical Exam Genitourinary: OB Exam Monitor Tracing: + external FHT monitor used, + external uterine monitor used, + category I and + normal FHT variability Cervidil 10 mg vaginal insert placed Results & Data ([facility]) Vital Signs (Past 12 Hours) Vital Signs Temp Pulse Resp BP 05/23/21 09:53 81 20 125/76 05/23/21 08:17 36.7 C 20 05/23/21 08:05 36.7 C 99 H 20 125/74
--- NOTE | 2021-05-23 22:24 | Labor Progress Brief Note ---
Date of Service May 23, 2021 Assessment & Plan Admission and Anticipated Discharge Date Admission Date: May 23, 2021 Physical Exam Genitourinary: Manual OB Exam: + cervical dilation 1 cm, + cervical effacement 50% and + station high OB Exam Monitor Tracing: + external FHT monitor used, + external uterine monitor used, + category I and + normal FHT variability Cervidil removed from vagina cervix becoming softer and more anterior Will allow to shower plan for Cytotec orally through the night Results & Data ([facility]) Vital Signs (Past 12 Hours) Vital Signs Temp Pulse Resp BP 05/23/21 18:12 36.5 C 20 05/23/21 18:11 105 H 122/77 05/23/21 15:02 88 122/71 05/23/21 15:00 36.8 C 18 05/23/21 13:38 90 20 117/62 05/23/21 11:44 36.5 C 85 20 125/70
[2021-05-23] MEDS: BUTORPHANOL TARTRATE 1 MG/ML VIAL IV PRN (22:52)
[2021-05-24] MEDS: miSOPROStoL 50 MCG TAB PO SCH ×4 (01:19→12:54)
[2021-05-24] MEDS ORDERED: OXYTOCIN 30 UNITS/500 ML BAG IV PRN ×3 (06:40→13:01)
[2021-05-24] MEDS: BUTORPHANOL TARTRATE 1 MG/ML VIAL IV PRN (07:00)
--- NOTE | 2021-05-24 10:23 | Obstetrical Progress Note ---
Date of Service May 24, 2021 Assessment & Plan Admission and Anticipated Discharge Date Admission Date: May 23, 2021 Subjective labor Notes induction for elevated BMI Day #2 Pt doing well FHR; CAT1 Ctx;2-4mins VE; 2-3/50/-2 Plan start Pitocin pt agrees with plan Results & Data ([facility]) Vital Signs (Past 12 Hours) Vital Signs Temp Pulse Resp BP 05/24/21 06:58 36.7 C 86 114/76 05/24/21 05:30 36.7 C 18 05/24/21 05:29 97 H 115/66 05/24/21 05:00 18 05/24/21 02:00 18 05/23/21 23:36 36.7 C 98 H 18 94/54 L
[2021-05-24] MEDS ORDERED: LACTATED RINGER'S 1,000 ML IV SCH (10:45)
[2021-05-24] MEDS ORDERED: ePHEDrine sulfate 50 MG/ML AMP ONE (11:16)
[2021-05-24] MEDS ORDERED: SODIUM CHLORIDE 0.9% INJ 10 ML VIAL ONE (11:16)
[2021-05-24] MEDS ORDERED: BUPIVACAINE 0.25% 30 ML VIAL ONE (11:17)
[2021-05-24] MEDS ORDERED: fentaNYL citrate 100 MCG/2 ML VIAL ONE (11:18)
[2021-05-24] MEDS ORDERED: fentaNYL 2MCG/ML ROPIVACAINE 1.25MG/ML 100 ML BAG EPI ONE (11:19)
[2021-05-24] MEDS ORDERED: PROMETHAZINE HCL 6.25 MG in SODIUM CHLORIDE 0.9% 50 ML IV PRN (12:06)
[2021-05-24] MEDS ORDERED: fentaNYL 2MCG/ML ROPIVACAINE 1.25MG/ML 100 ML BAG EPI PRN (12:06)
[2021-05-24] MEDS ORDERED: NALOXONE HCL 0.4 MG/1 ML VIAL/CARP IV PRN (12:06)
[2021-05-24] MEDS ORDERED: diphenhydrAMINE 50 MG/ML VIAL IV PRN (12:06)
[2021-05-24] MEDS ORDERED: NALOXONE HCL 1 MG in SODIUM CHLORIDE 0.9% 1000ML 1,000 ML IV PRN (12:06)
[2021-05-24] MEDS ORDERED: NALBUPHINE HCL INJ 10 MG/ML AMP IV PRN (12:06)
[2021-05-24] MEDS ORDERED: ONDANSETRON INJ 2 MG/ML 2 ML VIAL IV PRN (12:06)
[2021-05-24] MEDS ORDERED: ePHEDrine sulfate 50 MG/ML AMP IV PRN (12:06)
--- NOTE | 2021-05-24 12:06 | Anesthesiology Consultation ---
Date of Service May 24, 2021 Assessment & Plan (1) Encounter for pre-operative examination: Chart Review Chart Review: Patient NOT seen in Pre Admission Testing and Acceptable Risk for Labor Epidural Consults Requested none ASA ASA2 Proposed Anesthesia Anesthesia Type: Labor Epidural Risk / Benefits Reviewed With: PT / POA / Parent / Guardian, Accepts Plan and Informed Consent Obtained History Height/Weight Height: 5 ft 3 in Weight: 109.769 kg Allergies Allergy/AdvReac Type Severity Reaction Status Date / Time No Known Allergies Allergy Verified 05/08/21 23:03 Medications Home Medications Medication Instructions Recorded Confirmed Last Taken prenat.vits,jasvir,[id number] 1 tab PO DAILY 01/19/21 05/23/21 05/20/21 08:00 ferrous sulfate 325 mg (65 mg 325 mg PO DAILY 05/08/21 05/23/21 05/20/21 08:00 iron) tablet (Iron (ferrous sulfate)) magnesium 250 mg tablet 250 mg PO DAILY 05/23/21 05/23/21 05/20/21 08:00 vitamin B complex 1 cap PO DAILY 05/23/21 05/23/21 05/20/21 08:00 Active Medications Generic Name Dose Route Start Last Admin Trade Name Freq PRN Reason Stop Dose Admin Butorphanol Tartrate 1 mg 05/23/21 22:10 05/24/21 07:00 Butorphanol Tartrate 1 Mg/Ml Vial IV 06/22/21 22:09 1 mg Q2R PRN Administration Pain Oxytocin 30 units in 500 mls @ 4 mls/hr 05/24/21 10:23 05/24/21 11:03 Pitocin IV 05/26/21 10:22 0.24 units/hr .Q24H PRN 4 mls/hr Labor Induction/Augmentation Titration Protocol 0.24 UNITS/HR Lactated Ringer's 1,000 mls @ 125 mls/hr 05/24/21 10:45 05/24/21 11:11 Lr IV 06/23/21 10:44 999 mls/hr .Q8H [facility]A Infusion Misoprostol 50 mcg 05/24/21 00:00 05/24/21 09:19 Misoprostol 50 Mcg Tab PO 06/23/21 00:00 Not Given Q4 MORA Past Medical History Medical History Broken hip Right. Occurred during basic training for the [employer] in [id number]. Nondisplaced fracture, treated supportively. Hemorrhagic ovarian cyst No known health problems Obesity Pineal gland cyst Exercise / Class Metabolic Activity II 4-5 Yardwork/Stairs/Walk up hill Past Family History Family History Grandfather (Maternal) Family history of diabetes mellitus Grandmother (Paternal) Ovarian cancer Other No significant family history Past Surgical History Surgical History History of root canal procedure 2016 No history of previous surgery Past Anesthesia History No Hx of Anesthesia Complications and No Family Hx of Anesthesia Complications History of PONV No Hx of PONV and No Hx of Motion Sickness Social History Smoking Status: Never smoker Do You Dip or Chew Tobacco: No Hx Alcohol Use: No Hx Substance Use: No substance use type: does not use Physical Exam Vital Signs Last Vital Signs Temp 36.7 C 05/24/21 06:58 Pulse 93 H 05/24/21 12:04 Resp 20 05/24/21 10:54 BP 140/75 05/24/21 12:04 Pulse Ox 97 05/24/21 12:03 ENMT Mouth: no dentition abnormality Thyromental Distance: > or= 3.5 Finger Breadths Mallampati Class: II Neck normal visual inspection Respiratory normal respiratory effort Auscultation: lungs clear to auscultation bilaterally Cardiovascular Rate/Rhythm: regular rate and regular rhythm Psychiatric Orientation: alert Testing Laboratory Results 05/23/21 08:40
[2021-05-24] MEDS ORDERED: METHYLERGONOVINE MALEATE 0.2 MG/ML AMP ONE (12:41)
[2021-05-24] MEDS ORDERED: LIDOCAINE 1% LOCAL 20 ML VIAL ONE (12:43)
[2021-05-24] MEDS ORDERED: miSOPROStoL 200 MCG TAB ONE (12:53)
[2021-05-24] MEDS ORDERED: HYDROCORTISONE ACETATE 25 MG SUPP PR PRN (13:01)
[2021-05-24] MEDS ORDERED: VARICELLA VIRUS VACCINE LIVE VIAL SQ ONE (13:01)
[2021-05-24] MEDS ORDERED: ACETAMINOPHEN 325 MG TAB PO PRN (13:01)
[2021-05-24] MEDS ORDERED: METHYLERGONOVINE MALEATE 0.2 MG/ML AMP IM ONE (13:01)
[2021-05-24] MEDS ORDERED: miSOPROStoL 200 MCG TAB PR ONE (13:01)
[2021-05-24] MEDS ORDERED: bisacodyL 10 MG SUPP PR PRN (13:01)
[2021-05-24] MEDS ORDERED: MEASLES, MUMPS & RUBELLA VIRUS VIAL SQ ONE (13:01)
[2021-05-24] MEDS ORDERED: SUPERCREAM 0.870% 15 GM JAR EXT PRN (13:01)
[2021-05-24] MEDS ORDERED: DIPHTHERIA/TETANUS/PERTUSSIS 0.5 ML SYR/VIAL IM ONE (13:01)
[2021-05-24] MEDS ORDERED: BENZOCAINE 20% AER SPR 82.5 GM CAN EXT PRN (13:01)
[2021-05-24 13:19] LABS: Cord Venous Blood PCO2 38 mmHg (30.4-57.2); Cord Venous Blood PO2 32 mmHg (14.1-43.3); Cord Venous Blood pH 7.41 (7.20-7.44)
--- NOTE | 2021-05-24 13:19 | Anesthesia Procedure Note ---
Date of Service May 24, 2021 Anesthesia Post Epidural Note Vital Signs Vital Signs: Temp Pulse Resp BP Pulse Ox 36.7 C 101 H 20 135/63 94 05/24/21 06:58 05/24/21 13:06 05/24/21 10:54 05/24/21 13:06 05/24/21 12:58 Pain Intensity Bilateral Abdomen: Pain Intensity: 3 Notes Mental Status: alert / awake / arousable Nausea / Vomiting: adequately controlled Pain: adequately controlled Airway Patency, RR, SpO2: stable & adequate BP & HR: stable & adequate Hydration State: stable & adequate Neuraxial Anesthesia: was administered and sensory block is resolving Anesthetic Complications: no major complications apparent and Pt Satisfied with anesthetic care Epidural: Removed without complications and With tip intact
[2021-05-24 13:20] LABS: Base Excess Cord Venous Blood -1.1 mEq/L (-7.7-1.9); Cord Venous Blood HCO3 23 mmol/L (18.4-26.8); O2 Saturation Cord Venous Bld 72.3 % (<68)
--- NOTE | 2021-05-24 14:35 | Delivery Summary ---
DATE OF DELIVERY: 05/24/2021 DELIVERY NOTE: The patient delivered a live in right occiput anterior presentation. There wa s nuchal cord, which was easily reduced. was delivered and placed on mother's abdomen. Cord clamp was performed after 1 minute. Cord blood was obtained. Specimen for cord gas was obtained as well. 's weight is pending, Apgars 8 and 9. Placenta was spontaneously delivered. Inspection of the placenta shows a normal grossly looking placenta. Placenta was sent to pathology for patholo gical analysis. Inspection of the peritoneum shows a second-degree midline laceration, which was rep aired with 2-0 Vicryl in layers. Rectal exam post-repair showed good sphincter tone. Estimated blood loss was 450 mL. All instruments were removed from the vagina and accounted for x2. There were no sutures palpated during rectal exams. Baby and mother are doing well in recovery. Job ID: [id number]
[2021-05-24] MEDS: IBUPROFEN 600 MG TAB PO PRN ×2 (15:22→20:16)
[2021-05-24] MEDS: DOCUSATE SODIUM 100 MG CAP PO SCH (21:32)
[2021-05-25] MEDS: IBUPROFEN 600 MG TAB PO PRN ×2 (03:40→07:41)
[2021-05-25 06:17] LABS: Hematocrit (blood only) 29.3 % (37-47); Hemoglobin 9.5 g/dL (12.0-16.0); Mean Corpuscular Hemoglobin 25.1 pg (25-34); Mean Corpuscular Hgb Conc 32.4 g/dL (32-36); Mean Corpuscular Volume 77.5 fL (80-100); Mean Platelet Volume 9.2 fL (7.4-10.4); Platelet Count 204 K/uL (130-400); RDW Coefficient of Variation 15.4 % (11.5-14.5); RDW Standard Deviation 43.3 fL (36.4-46.3); Red Blood Count 3.78 M/uL (4.2-5.4)
[2021-05-25] MEDS: DOCUSATE SODIUM 100 MG CAP PO SCH (07:41)
[2021-05-25] MEDS ORDERED: FERROUS SULFATE 325 MG TAB PO SCH (08:00)
[2021-05-25] MEDS ORDERED: PRENATAL VITAMIN 1 TAB PO SCH (08:00)
--- NOTE | 2021-05-25 10:03 | Obstetrical Progress Note ---
Date of Service May 25, 2021 Subjective Ambulation: ambulating normally Voiding: no voiding problems Passing Gas:: Yes Diet Tolerance:: regular diet Lochia:: Small Feeding Type:: breast feeding Current Pain Level(1-10): 0 plans for d/c today Review of Systems All systems reviewed & are unremarkable except as noted in HPI & below Constitutional: + as per Subjective / HPI Physical Exam Constitutional WD/WN, vitals as above comfortable abdomen soft and non-tender fundus firm below U no edema neg Kelin's for d/c today Results & Data ([facility]) Vital Signs (Past 12 Hours) Vital Signs Temp Pulse Resp BP Pulse Ox 05/25/21 07:40 36.6 C 81 16 125/81 98 05/25/21 03:40 36.6 C 87 16 119/81 05/25/21 00:10 36.7 C 89 20 124/84 Laboratory Results Laboratory Results - last 72 hr 05/23/21 05/23/21 05/23/21 08:25 08:25 08:40 WBC 9.97 RBC 4.13 L Hgb 10.2 L Hct 31.6 L MCV 76.5 L MCH 24.7 L MCHC 32.3 RDW Std Deviation 42.6 RDW Coeff of Greg 15.2 H Plt Count 221 MPV 9.7 Cord ABG pH Cord ABG pCO2 Cord ABG pO2 Cord ABG HCO3 Cord ABG Base Excess Cord ABG O2 Sat Cord VBG pH Cord VBG pCO2 Cord VBG pO2 Cord VBG HCO3 Cord VBG Base Excess Cord VBG O2 Sat Barometric Pressure Blood Gas Comments COVID[facility]19 [facility] SARS-CoV-2, RNA, NAAT NEGATIVE 05/24/21 05/24/21 05/25/21 13:01 13:01 05:59 WBC 10.80 RBC 3.78 L Hgb 9.5 L Hct 29.3 L MCV 77.5 L MCH 25.1 MCHC 32.4 RDW Std Deviation 43.3 RDW Coeff of Greg 15.4 H Plt Count 204 MPV 9.2 Cord ABG pH Cancelled Cord ABG pCO2 Cancelled Cord ABG pO2 Cancelled Cord ABG HCO3 Cancelled Cord ABG Base Excess Cancelled Cord ABG O2 Sat Cancelled Cord VBG pH 7.41 Cord VBG pCO2 38 Cord VBG pO2 32 Cord VBG HCO3 23 Cord VBG Base Excess -1.1 Cord VBG O2 Sat 72.3 H Barometric Pressure Cancelled 731.3 Blood Gas Comments Cancelled [facility] COVID-19 Eval Order SARS-CoV-2, RNA, NAAT
[2021-05-25] MEDS ORDERED: bisacodyL 5 MG TABEC PO SCH (20:00)
== END 2021-05-25 12:55 | disposition home or self-care (01) | DRG 806 ==
LOC: 4S1 08:04 → 4S2 05-24 15:42